=== PATIENT | female | born 1940 | race Two or more races ===

== ENCOUNTER 2024-08-04 10:16 | Outpatient (CLI) | payer MEDICARE, OTHER | END 2024-08-04 23:59 | disposition home or self-care (01) | LOC: MSC 10:16 | PROVIDERS: ATTEND Anesthesiology | DX: G89.4 Chronic pain syndrome (principal); M54.16 Radiculopathy, lumbar region; Z85.118 Personal history of other malignant neoplasm of bronchus and lung; M62.830 Muscle spasm of back; M19.90 Unspecified osteoarthritis, unspecified site; Z79.891 Long term (current) use of opiate analgesic ==

== ENCOUNTER 2025-10-26 09:40 | Outpatient (CLI) | payer MEDICARE, OTHER | END 2025-10-26 23:59 | disposition home or self-care (01) | LOC: MSC 09:40 | PROVIDERS: ATTEND Anesthesiology | DX: G89.4 Chronic pain syndrome (principal); M54.16 Radiculopathy, lumbar region; M54.59 Other low back pain; M62.830 Muscle spasm of back; Z79.891 Long term (current) use of opiate analgesic; M19.90 Unspecified osteoarthritis, unspecified site; Z85.118 Personal history of other malignant neoplasm of bronchus and lung; I10 Essential (primary) hypertension; E11.9 Type 2 diabetes mellitus without complications; E78.5 Hyperlipidemia, unspecified ==